=== PATIENT | male | born 1965 | race Caucasian/White ===

== ENCOUNTER 2018-09-17 07:40 | Emergency (ER) | payer MEDICAID ==
[~2018-09-17] VITALS: Ht 152.4 cm; Wt 77.0 kg
[~2018-09-17 07:40] MED LIST: LYRICA75 MG PO; MOTRIN800 MG PO; PAROXETINE20 MG PO; PERCOCET1 TA2 PO; PERCOCET1 TA4 PO; PROAIR HFA108 MCG/AC; SYMBICORT 80-4.5MCG; TIZANIDINE4 MG PO
[2018-09-17 08:42] VITALS: BP 119/79
== END 2018-09-17 08:55 | disposition home or self-care (01) ==
LOC: ED 07:40
DX: M25.572 Pain in left ankle and joints of left foot (principal); F17.210 Nicotine dependence, cigarettes, uncomplicated; W17.2XXA Fall into hole, initial encounter; Y92.009 Unspecified place in unspecified non-institutional (private) residence as the place of occurrence of the external cause